=== PATIENT | male | born 2000 | race Caucasian/White ===

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

== ENCOUNTER 2019-03-16 04:32 | Emergency (ER) | payer SELFPAY ==
[~2019-03-16] VITALS: Ht 177.8 cm; Wt 64.4 kg
[2019-03-16] MEDS ORDERED: ONDANSETRON 4 MG TAB.RAPDIS ONE (04:40)
--- NOTE | 2019-03-16 04:40 | NUR ---
PT BIBRA PER EMS, ETOH W/ NAUSEA/VOMITTING. PT AXO4. RESPIRATIONS EVEN AND UNLABORED. PT PUT ON THE BIOMEDICAL SPECIALIST AND PULSE OX. PENDING EVAL FROM ER .
[2019-03-16] MEDS ORDERED: ONDANSETRON 4 MG TAB.RAPDIS PO ONE (05:00)
[2019-03-16 05:10] LABS: BASOPHILS % (AUTO) 0.6 % (0.0-2.0); EOSINOPHILS % (AUTO) 1.5 % (0.0-6.0); HEMATOCRIT 48 % (39-51); HEMOGLOBIN 16.2 g/dL (13.5-17.5); LYMPHOCYTES # (AUTO) 1.6 /CMM (0.8-4.8); MEAN CORPUSCULAR HGB CONC 34 g/dl (31.0-36.0); MEAN CORPUSCULAR VOLUME 95 fL (80-96); MONOCYTES # (AUTO) 0.2 /CMM (0.1-1.30); MONOCYTES % (AUTO) 2.8 % (2.0-12.0); NEUTROPHILS # (AUTO) 4.2 /CMM (1.8-8.9); NEUTROPHILS % (AUTO) 69.1 % (43.0-81.0); PLATELET COUNT (AUTO) 246 /CMM (150-450); RED BLOOD CELL COUNT(AUTO) 5.02 MIL/uL (4.5-6.0)
[2019-03-16 05:30] LABS: CALCIUM, SERUM 8.9 mg/dL (8.5-10.1); CREATININE 1.1 mg/dL (0.6-1.3); POTASSIUM 3.3 mmol/L (3.5-5.1)
[2019-03-16 05:37] LABS: ALBUMIN 4.6 g/dL (3.4-5.0); BILIRUBIN,DIRECT 0.1 mg/dL (0.0-0.2); TOTAL PROTEIN, SERUM 7.7 g/dL (6.4-8.2)
[2019-03-16 06:13] VITALS: BP 110/66
--- NOTE | 2019-03-16 06:13 | NUR ---
Patient discharged to home in stable condition. Written and verbal after care instructions given. Patient verbalizes understanding of instruction.
== END 2019-03-16 06:14 | disposition home or self-care (01) ==
LOC: ER 04:34
DX: F10.129 Alcohol abuse with intoxication, unspecified (principal); R11.2 Nausea with vomiting, unspecified; Z88.0 Allergy status to penicillin; Z88.1 Allergy status to other antibiotic agents; Y90.9 Presence of alcohol in blood, level not specified
CPT/HCPCS: 36415; 80048; 80076; 83690; 85025; 99283; Q0162